=== PATIENT | male | born 1980 | race Caucasian/White ===

== ENCOUNTER 2023-06-18 09:49 | Outpatient (CLI) | payer BC, SELFPAY ==
--- NOTE | 2023-06-18 10:00 | CRLHL7_ITS ---
For Patients: As a result of the Cures Act, medical imaging exams and procedure reports are released immediately into your electronic medical record. You may view this report before your referring provider. If you have questions, please contact your health care provider. Indication: Chronic sinus disease Technique: Performed without IV contrast Comparison: None available Findings: Frontal sinuses: Mild mucosal thickening within the frontal sinuses, right greater than left. Ethmoid sinuses: Clear. Maxillary sinuses: Mild mucosal thickening within the maxillary sinuses. The maxillary sinus drainage pathway is patent on the left and occluded on the right. Sphenoid sinuses: Mucosal thickening right sphenoid sinus with occlusion of the sinus drainage pathway. Slight mucosal thickening anterior left sphenoid sinus with partial obstruction of the sinus drainage pathway. Nasal Cavity: S-shaped curvature of the nasal septum with nasal septal spurs on both sides. No TMJ abnormalities identified. The visualized portions of the orbits, intracranial contents and upper soft tissue neck are grossly negative. Impression: 1. Mild sinus disease in the maxillary sinuses and right frontal sinus. Moderate sinus disease of the right sphenoid sinus. 2. S-shaped curvature of the nasal septum with bilateral nasal septal spurs. Please note that all CT scans at this facility use dose modulation, iterative reconstruction, and/or weight-based dosing when appropriate to reduce radiation dose to as low as reasonably achievable. Dictated by Nathen Angel MD @ 06/18/2023 12:45:03 PM (Electronically Signed)
== END 2023-06-18 09:50 | disposition home or self-care (01) ==
LOC: CT 09:54
PROVIDERS: PCP Emergency Medicine; Visit Provider Emergency Medicine
DX: J32.9 Chronic sinusitis, unspecified (principal); J32.0 Chronic maxillary sinusitis; J34.2 Deviated nasal septum; R09.89 Other specified symptoms and signs involving the circulatory and respiratory systems
CPT/HCPCS: 70486